=== PATIENT | female | born 1985 | race Two or more races ===

== ENCOUNTER 2017-09-17 21:29 | Emergency (ER) | payer MEDICAID ==
[~2017-09-17] VITALS: Ht 152.4 cm; Wt 68.0 kg
--- NOTE | 2017-09-17 21:41 | NUR ---
PT BIBSELF C/O "ABD PAIN/N/V/DIARRHEA SINCE YESTERDAY" PT AOX3 RR EVEN AND UNLABORED. NO SOB NTOED. NAD NOTED. NO NVD AT THIS TIME PT GOWNED AND PLACED ON MONTIOR WAITING FOR MD PRUETT.
[2017-09-17 22:02] LABS: BILIRUBIN,URINE NEGATIVE (NEGATIVE); BLOOD, URINE 2+ Ery/uL (NEGATIVE); COLOR,URINE YELLOW (YELLOW); KETONES,URINE TRACE (NEGATIVE); LEUKOCYTE ESTERASE ,URINE NEGATIVE (NEGATIVE); NITRITE, URINE NEGATIVE (NEGATIVE); PROTEIN,URINE NEGATIVE (NEGATIVE); UGLUCOSE 2+ mg/dL (NEGATIVE); UROBILINOGEN,URINE 0.2 EU/dL (0.2)
[2017-09-17 22:20] LABS: APPEARANCE,URINE SLIGHTLY CLOUDY (CLEAR)
[2017-09-17 22:24] LABS: BACTERIA,URINE None seen /HPF (None Seen); MUCUS,URINE Many /LPF (None Seen); SQUAMOUS EPITHELIAL CELL,UR Few /HPF (None Seen); WBC,URINE 0-2 /HPF (0-3)
[2017-09-17] MEDS ORDERED: ONDANSETRON HCL/PF 4 MG/2 ML VIAL ONE ×2 (22:45→23:18)
[2017-09-17] MEDS ORDERED: KETOROLAC TROMETHAMINE INJ 30 MG/ML VIAL ONE ×2 (22:45→23:17)
--- NOTE | 2017-09-17 22:49 | NUR ---
US AT BEDSIDE.
[2017-09-17 22:57] LABS: BASOPHILS % (AUTO) 0.3 % (0.0-2.0); EOSINOPHILS % (AUTO) 1.1 % (0.0-6.0); HEMATOCRIT 39 % (33-45); HEMOGLOBIN 12.9 g/dL (11.5-14.8); LYMPHOCYTES # (AUTO) 1.4 /CMM (0.8-4.8); LYMPHOCYTES % (AUTO) 12.8 % (20.0-44.0); MEAN CORPUSCULAR HEMOGLOBIN 30 PG (26.0-33.0); MEAN CORPUSCULAR HGB CONC 33 g/dl (31.0-36.0); MEAN CORPUSCULAR VOLUME 89 fL (82-100); MONOCYTES # (AUTO) 0.9 /CMM (0.1-1.30); MONOCYTES % (AUTO) 8.2 % (2.0-12.0); NEUTROPHILS # (AUTO) 8.5 /CMM (1.8-8.9); NEUTROPHILS % (AUTO) 77.6 % (43.0-81.0); PLATELET COUNT (AUTO) 189 /CMM (150-450); RDW COEFFICIENT OF VARIATION 12.6 (11.5-15.0); RED BLOOD CELL COUNT(AUTO) 4.34 MIL/uL (4.0-5.2); WHITE BLOOD COUNT (AUTO) 10.9 K/uL (4.3-11.0)
[2017-09-17] MEDS ORDERED: IV NS 0.9% 1,000 ML BAG IV ONE (23:00)
[2017-09-17] MEDS ORDERED: ONDANSETRON HCL/PF 4 MG/2 ML VIAL IVP ONE (23:00)
[2017-09-17] MEDS ORDERED: KETOROLAC TROMETHAMINE INJ 30 MG/ML VIAL IV ONE (23:00)
[2017-09-17 23:06] LABS: CREATININE 0.7 mg/dL (0.6-1.3); POTASSIUM 3.1 mmol/L (3.5-5.1)
[2017-09-17 23:12] LABS: ALBUMIN 3.8 g/dL (3.4-5.0); BILIRUBIN,DIRECT 0.1 mg/dL (0.0-0.2); BILIRUBIN,TOTAL 0.5 mg/dL (0.2-1.0); TOTAL PROTEIN, SERUM 6.8 g/dL (6.4-8.2)
[2017-09-18] MEDS ORDERED: POTASSIUM CHLORIDE 20 MEQ TAB.PRT.SR PO ONE ×2
--- NOTE | 2017-09-18 | NUR ---
DR. SOLIS AT BEDSIDE SPEAKING TO PT REGARDING RESULTS.
--- NOTE | 2017-09-18 00:08 | NUR ---
IV removed. Catheter intact and site benign. Pressure and 4x4 applied to site. No bleeding noted. Patient discharged to home in stable condition. Written and verbal after care instructions given. Patient verbalizes understanding of instruction. ambulatory with a steady gait.
[2017-09-18 00:09] VITALS: BP 118/72
== END 2017-09-18 00:10 | disposition home or self-care (01) ==
LOC: ER 21:36
DX: E87.6 Hypokalemia (principal); E86.0 Dehydration; R10.13 Epigastric pain; R11.10 Vomiting, unspecified; R19.7 Diarrhea, unspecified; R73.9 Hyperglycemia, unspecified
CPT/HCPCS: 36415; 76705; 80048; 80076; 81001; 83690; 84703; 85025; 96361; 96374; 96375; 99285; A4606; J1885; J2405; J7030; Z7610; 81000-TC

== ENCOUNTER 2018-12-30 10:28 | Emergency (ER) | payer MEDICAID ==
[~2018-12-30] VITALS: Ht 167.6 cm; Wt 48.5 kg
[2018-12-30 10:38] VITALS: BP 116/70
--- NOTE | 2018-12-30 12:13 | NUR ---
MARGOTH LUX AT BEDSIDE FOR EVAL.
--- NOTE | 2018-12-30 12:14 | NUR ---
WOUND CLEANING DONE BY OFFICE DIRECTOR
[2018-12-30] MEDS ORDERED: AMOX/CLAVULANATE 875 MG TABLET PO ONE (12:30)
[2018-12-30] MEDS ORDERED: IBUPROFEN 600 MG TABLET PO ONE ×2 (12:30→12:35)
[2018-12-30] MEDS ORDERED: TDAP [DIPH/PERTUSSIS/TET] 0.5 ML VIAL IM ONE ×2 (12:30→12:35)
[2018-12-30] MEDS ORDERED: AMOX/CLAVULANATE 875 MG TABLET ONE (12:35)
--- NOTE | 2018-12-30 12:42 | NUR ---
Patient discharged to home in stable condition. Written and verbal after care instructions given. Patient verbalizes understanding of instruction.
== END 2018-12-30 12:42 | disposition home or self-care (01) ==
LOC: ER 10:30
DX: S81.851A Open bite, right lower leg, initial encounter (principal); W54.0XXA Bitten by dog, initial encounter; Y93.89 Activity, other specified; Y92.89 Other specified places as the place of occurrence of the external cause; Y99.8 Other external cause status
CPT/HCPCS: 90715

== ENCOUNTER 2019-01-18 15:53 | Emergency (ER) | payer MEDICAID ==
[~2019-01-18] VITALS: Ht 167.6 cm; Wt 62.1 kg
--- NOTE | 2019-01-18 16:17 | NUR ---
PT. CAME TO ER FOR GENERALIZED RASH STATING THAT SHE IS NOT AWARE OF WHAT CAUSED IT. AAOX4. AMBULATORY. NO SOB. BREATHING EVEN AND UNLABORED. OXYGEN AT 100% ON RA. NOT IN ANY DISTRESS. RESTING IN BED W/ SON. WILL CONTINUE TO MONITOR.
[2019-01-18] MEDS ORDERED: predniSONE 10 MG TABLET PO ONE (17:00)
[2019-01-18] MEDS ORDERED: predniSONE 20 MG TABLET ONE (17:05)
[2019-01-18 18:16] VITALS: BP 113/76
--- NOTE | 2019-01-18 18:16 | NUR ---
Patient discharged to home in stable condition. Written and verbal after care instructions given. Patient verbalizes understanding of instruction.
== END 2019-01-18 18:18 | disposition home or self-care (01) ==
LOC: ER 15:54
DX: L29.9 Pruritus, unspecified (principal); T78.40XA Allergy, unspecified, initial encounter; X58.XXXA Exposure to other specified factors, initial encounter
CPT/HCPCS: 99283; J7512